=== PATIENT | female | born 1995 | race Caucasian/White ===

== ENCOUNTER 2016-08-02 21:14 | Emergency (ER) | payer OTHER ==
[~2016-08-02] VITALS: Ht 170.2 cm; Wt 93.0 kg
[2016-08-02 21:18] VITALS: BP_SYST 113
[2016-08-02] MEDS ORDERED: insulin pump (21:52)
[2016-08-02] MEDS ORDERED: NACL 0.9% 1,000 ML IV ONE (22:00)
[2016-08-02] MEDS ORDERED: ONDANSETRON 4 MG ODT TAB PO ONE (22:00)
[2016-08-02 22:59] VITALS: BP_SYST 113
== END 2016-08-02 22:59 | disposition home or self-care (01) ==
LOC: SED 21:14
DX: A08.4 Viral intestinal infection, unspecified (principal); E11.9 Type 2 diabetes mellitus without complications
CPT/HCPCS: 82962; 96360; 99284; J7030; Q0162